=== PATIENT | male | born 1945 | race Caucasian/White ===

== ENCOUNTER 2017-07-06 20:41 | Outpatient (CLI) | END 2017-07-06 20:42 | disposition short-term general hospital (02) | LOC: AMBL 20:41 | PROVIDERS: ATTEND Internal Medicine Geriatric Medicine | DX: R47.81 Slurred speech (principal); R53.1 Weakness; R05 Cough; W19.XXXA Unspecified fall, initial encounter ==

== ENCOUNTER 2017-12-22 17:53 | Outpatient (CLI) | payer OTHER | END 2017-12-22 18:15 | disposition short-term general hospital (02) | LOC: AMBL 17:53 | PROVIDERS: ATTEND Emergency Medicine | DX: R50.9 Fever, unspecified (principal); Z87.440 Personal history of urinary (tract) infections ==